=== PATIENT | male | born 2000 | race Caucasian/White ===

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

== ENCOUNTER → 2023-10-03 | Outpatient (REF) | payer OTHER ==
[2023-10-03 18:01] LABS: ALBUMIN 4.3 G/DL (3.2-5.2); ALKALINE PHOSPHATASE 60 U/L (46-116); ALT/SGPT 27 U/L (7.0-40); AST/SGOT 14 U/L (<34); BILIRUBIN,TOTAL 0.4 MG/DL (0.3-1.2); BLOOD UREA NITROGEN 17 MG/DL (9-23); CALCIUM LEVEL 9.5 MG/DL (8.5-10.1); CARBON DIOXIDE LEVEL 29 MMOL/L (20-31); CHLORIDE LEVEL 104 MMOL/L (98-107); CHOLESTEROL LEVEL 112 MG/DL (<200); CHOLESTEROL RISK RATIO 2.55 (<5); GLOMERULAR FILTRATION RATE > 60.0 (>60); GLUCOSE, FASTING 80 MG/DL (60-100); HDL CHOLESTEROL 43.8 MG/DL (>40); LDL CHOLESTEROL 48.4 MG/DL (<100); NON-HDL-C 68.2 MG/DL; POTASSIUM SERUM 4.5 MMOL/L (3.5-5.1); SODIUM LEVEL 138 MMOL/L (136-145); TOTAL PROTEIN 6.6 G/DL (5.7-8.2); TRIGLYCERIDES LEVEL 99 MG/DL (<150)
[2023-10-03 18:02] LABS: TOTAL 25(OH) VITAMIN D 25.7 NG/ML (20.0-100.0)
[2023-10-03 18:26] LABS: HIV 1&2 SCREEN NEGATIVE (NEGATIVE)
[2023-10-03 18:34] LABS: HEPATITIS C VIRUS ABY INDEX < 0.02 INDEX (<0.8)
== END ==
LOC: M LAB REF 16:43
PROVIDERS: ATTEND Physician Assistant
DX: Z11.9 Encounter for screening for infectious and parasitic diseases, unspecified (principal); Z13.220 Encounter for screening for lipoid disorders; E55.9 Vitamin D deficiency, unspecified

== ENCOUNTER → 2024-01-01 | Outpatient (CLI) | payer BC | LOC: M RAD 15:48 | PROVIDERS: ATTEND Physician Assistant | DX: R68.84 Jaw pain (principal); R59.9 Enlarged lymph nodes, unspecified ==

== ENCOUNTER → 2025-06-25 | Outpatient (CLI) | payer BC ==
[~2025-06-25] MED LIST changes: -IBUP-1022 PO; +IBUP600T42 PO
== END ==
LOC: M OUTALCOH 07:41
PROVIDERS: ATTEND Psychiatry & Neurology Psychiatry
DX: Z03.89 Encounter for observation for other suspected diseases and conditions ruled out (principal); Z72.0 Tobacco use